=== PATIENT | male | born 1965 | race Hispanic/Latino ===

== ENCOUNTER → 2018-11-11 | Outpatient (CLI) | payer OTHER ==
[~2018-11-11] MED LIST: DEXT30TA10 PO; TAMS0.4C32 PO
[2018-11-11 15:51] LABS: BASOPHILS % (AUTO) 0.9 % (0.0-5.0); EOSINOPHILS % (AUTO) 3.4 % (0.0-8.0); HEMATOCRIT 42.5 % (42-54); MEAN CORPUSCULAR HEMOGLOBIN 31.8 pg (27.0-33.0); MEAN CORPUSCULAR HGB CONC 33.7 g/dL (32.0-36.0); MEAN CORPUSCULAR VOLUME 94.4 fL (79-99); MONOCYTES % (AUTO) 7.4 % (3.0-13.0); NEUTROPHILS % (AUTO) 57.3 % (40.0-77.0); NUCLEATED RED BLOOD CELLS 0.1 % (0.0-0.19); PLATELET COUNT (AUTO) 172 K/uL (130-400); RED CELL DISTRIBUTION WIDTH 12.8 % (11.0-15.5); WHITE BLOOD COUNT (AUTO) 7.3 K/uL (4.8-10.8)
[2018-11-11 16:38] LABS: ALBUMIN 3.1 g/dL (3.5-5.0); BILIRUBIN,TOTAL 0.2 mg/dL (0.2-1.0); CREATININE 1.3 mg/dL (0.5-1.5); POTASSIUM 3.7 mmol/L (3.5-5.1); THYROID STIMULATING HORMONE 1.1 uIU/mL (0.36-3.74); TOTAL PROTEIN, SERUM 5.6 g/dL (6.0-8.3)
== END | disposition home or self-care (01) ==
LOC: LAB 15:13
PROVIDERS: ATTEND Internal Medicine Gastroenterology
DX: R10.13 Epigastric pain (principal); R11.2 Nausea with vomiting, unspecified; R19.4 Change in bowel habit
CPT/HCPCS: 36415; 80053; 82150; 83690; 84443; 85025

== ENCOUNTER → 2018-12-02 | Outpatient (CLI) | payer OTHER | END | disposition home or self-care (01) | LOC: LAB 16:29 | PROVIDERS: ATTEND Internal Medicine Gastroenterology | DX: R19.4 Change in bowel habit (principal) | CPT/HCPCS: 87507 ==

== ENCOUNTER 2020-04-25 11:15 | Inpatient (IN) | payer OTHER ==
[~2020-04-25] VITALS: Ht 157.5 cm; Wt 86.2 kg
[~2020-04-25 11:15] MED LIST changes: -DEXT30TA10 PO
[2020-04-26 09:48] VITALS: BP 141/82
[2020-04-26] MEDS ORDERED: OMEP-420 PO (10:21)
[2020-04-26] MEDS ORDERED: HYDR-4068 PO (10:21)
[2020-04-26] MEDS ORDERED: DULO30CA52 PO (10:21)
[2020-04-26] MEDS ORDERED: ERGO500093 PO (10:21)
[2020-04-26] MEDS ORDERED: TOPI50TA24 PO (10:21)
[2020-04-26] MEDS ORDERED: GABA600T10 PO (10:21)
[2020-04-29] VITALS (27 sets, daily range): BP systolic 102–148; BP diastolic 62–93
[2020-04-29] MEDS ORDERED: VANCOMYCIN 1G 1.5 GM in 0.9% NACL 250ML 250 ML IV SCH (06:00)
[2020-04-29] MEDS ORDERED: CEFAZOLIN SODIUM 1 GM VIAL ONE (06:41)
[2020-04-29] MEDS ORDERED: LACTATED RINGERS 1000ML 1,000 ML IV ONE (06:42)
[2020-04-29] MEDS ORDERED: CLINDAMYCIN IVPB 900MG/50ML 50 ML IV ONE (07:16)
[2020-04-29] MEDS ORDERED: CLINDAMYCIN 900MG/6ML INJ ONE (08:02)
[2020-04-29] MEDS ORDERED: TRANEXAMIC ACID 1000MG/10ML ONE ×2 (08:10→11:57)
[2020-04-29] MEDS ORDERED: METOCLOPRAMIDE 10 MG/2 ML VIAL ONE (08:36)
[2020-04-29] MEDS ORDERED: CELECOXIB 200 MG CAP ONE (08:37)
[2020-04-29] MEDS ORDERED: KETOROLAC 15MG/ML VIAL (15MG/ML) ONE (08:37)
[2020-04-29] MEDS ORDERED: ACETAMINOPHEN 500 MG TABLET ONE (08:37)
[2020-04-29] MEDS ORDERED: ROPIVACAINE 0.5% 5MG/ML 30ML IJ ONE (08:43)
[2020-04-29] MEDS ORDERED: MIDAZOLAM HCL 1 MG/ML 2ML VIAL ONE (08:51)
[2020-04-29] MEDS ORDERED: FENTANYL CITRATE PF 50 MCG/1 ML 2ML VIAL ONE (08:51)
[2020-04-29] MEDS ORDERED: LIDOCAINE HCL-MPF 1% 5ML AMP IJ ONE (08:51)
[2020-04-29] MEDS ORDERED: PROPOFOL 10 MG/ML 20ML VIAL IV ONE ×2 (08:51→10:44)
[2020-04-29] MEDS ORDERED: ROCURONIUM 10MG/1ML SYR 10 MG/ML ML ONE ×2 (08:51→10:46)
[2020-04-29] MEDS ORDERED: EPHEDRINE SULFATE 50 MG/ML AMPULE ONE (09:28)
[2020-04-29] MEDS ORDERED: TRAMADOL HCL 50 MG TABLET PO PRN (11:15)
[2020-04-29] MEDS ORDERED: POTASSIUM CHLORIDE 20MEQ/100ML 100 ML IV PRN (11:15)
[2020-04-29] MEDS ORDERED: LIDOCAINE HCL-MPF 1% 2ML VIAL IV PRN (11:15)
[2020-04-29] MEDS ORDERED: DiphenhydrAMINE HCL 50 MG/ML VIAL IVP PRN (11:15)
[2020-04-29] MEDS ORDERED: OXYCODONE HCL 5 MG TAB PO PRN (11:15)
[2020-04-29] MEDS ORDERED: POTASSIUM CHLORIDE 10% ELIXIR 20 MEQ/15 ML UDCUP PO PRN (11:15)
[2020-04-29] MEDS ORDERED: ONDANSETRON 4MG INJ IVP PRN (11:15)
[2020-04-29] MEDS ORDERED: FERROUS FUMARATE 324 MG TABLET PO PRN (11:15)
[2020-04-29] MEDS ORDERED: KCL 20 MEQ ERTAB PO PRN (11:15)
[2020-04-29] MEDS: ACETAMINOPHEN 500 MG TABLET PO SCH ×2 (11:15→20:51)
[2020-04-29] MEDS: 0.9%NACL 1000ML 1,000 ML IV SCH ×2 (11:15→21:43)
[2020-04-29] MEDS ORDERED: TEMAZEPAM 15 MG CAPSULE PO PRN (11:15)
[2020-04-29] MEDS ORDERED: MEPERIDINE-PF 25 MG/ML SYG ONE ×2 (12:11→12:39)
[2020-04-29] MEDS ORDERED: KETOROLAC 30MG VIAL (30MG/ML) ONE (12:43)
[2020-04-29] MEDS ORDERED: MORPHINE 4 MG SYG ONE (12:48)
[2020-04-29] MEDS: OXYCODONE HCL 5 MG TAB PO PRN ×3 (13:29→20:52)
[2020-04-29] MEDS: KETOROLAC 15MG/ML VIAL (15MG/ML) IV PRN (14:37)
[2020-04-29] MEDS: CLINDAMYCIN IVPB 900MG/50ML 50 ML IVPB SCH (18:04)
[2020-04-29] MEDS: FAMOTIDINE 20MG TAB PO SCH (20:51)
[2020-04-29] MEDS: CELECOXIB 200 MG CAP PO SCH (20:51)
[2020-04-29] MEDS ORDERED: PREGABALIN 25 MG CAP PO SCH (21:00)
[2020-04-29] MEDS: GABAPENTIN 300 MG CAPSULE PO SCH (22:14)
[2020-04-29] MEDS: ASPIRIN 81MG CHEW TAB PO SCH (22:14)
[2020-04-30] MEDS: CLINDAMYCIN IVPB 900MG/50ML 50 ML IVPB SCH (01:03)
[2020-04-30] MEDS: OXYCODONE HCL 5 MG TAB PO PRN ×5 (02:10→18:34)
[2020-04-30] MEDS: ACETAMINOPHEN 500 MG TABLET PO SCH ×3 (02:49→18:35)
[2020-04-30 03:39] VITALS: BP 130/70
[2020-04-30 05:21] LABS: HEMATOCRIT 36.2 % (42-54); MEAN CORPUSCULAR HEMOGLOBIN 30.9 pg (27.0-33.0); MEAN CORPUSCULAR HGB CONC 32.3 g/dL (32.0-36.0); MEAN CORPUSCULAR VOLUME 95.5 fL (79-99); RED BLOOD CELL COUNT(AUTO) 3.79 MIL/uL (4.50-6.20); RED CELL DISTRIBUTION WIDTH 12.3 % (11.0-15.5); WHITE BLOOD COUNT (AUTO) 7.9 K/uL (4.8-10.8)
[2020-04-30 05:29] LABS: CREATININE 0.9 mg/dL (0.5-1.5)
[2020-04-30] MEDS: KETOROLAC 15MG/ML VIAL (15MG/ML) IV PRN ×3 (06:09→21:48)
[2020-04-30] MEDS: 0.9%NACL 1000ML 1,000 ML IV SCH (06:10)
[2020-04-30] MEDS: CALCIUM CARB 500MG PO PRN (06:47)
[2020-04-30] MEDS: TAMSULOSIN HCL 0.4 MG CAP.ER.24H PO SCH (08:47)
[2020-04-30] MEDS: CELECOXIB 200 MG CAP PO SCH ×2 (08:47→21:40)
[2020-04-30] MEDS: FAMOTIDINE 20MG TAB PO SCH ×2 (08:47→21:41)
[2020-04-30] MEDS: POLYETHYLENE GLYCOL 3350 17 GM POWD.PACK PO SCH (08:48)
[2020-04-30] MEDS: DULOXETINE HCL 30 MG CAP PO SCH (08:48)
[2020-04-30] MEDS: ASPIRIN 81MG CHEW TAB PO SCH ×2 (08:48→21:40)
[2020-04-30] MEDS: GABAPENTIN 300 MG CAPSULE PO SCH ×3 (08:48→21:41)
[2020-04-30] MEDS: TOPIRAMATE 25 MG TABLET PO SCH (08:48)
[2020-04-30] MEDS: PANTOPRAZOLE 40 MG TAB DR PO SCH (08:49)
[2020-04-30 09:09] VITALS: BP 128/69
[2020-04-30 11:46] VITALS: BP 132/79
[2020-04-30 16:41] VITALS: BP 115/57
[2020-04-30 19:59] VITALS: BP 138/73
[2020-04-30 23:29] VITALS: BP 136/73
[2020-05-01 03:44] VITALS: BP 127/71
[2020-05-01] MEDS: KETOROLAC 15MG/ML VIAL (15MG/ML) IV PRN (03:54)
[2020-05-01] MEDS: ACETAMINOPHEN 500 MG TABLET PO SCH ×2 (03:54→12:50)
[2020-05-01 08:00] VITALS: BP 114/66
[2020-05-01] MEDS: GABAPENTIN 300 MG CAPSULE PO SCH (08:39)
[2020-05-01] MEDS: CELECOXIB 200 MG CAP PO SCH (08:40)
[2020-05-01] MEDS: DULOXETINE HCL 30 MG CAP PO SCH (08:40)
[2020-05-01] MEDS: OXYCODONE HCL 5 MG TAB PO PRN ×2 (08:40→12:51)
[2020-05-01] MEDS: FAMOTIDINE 20MG TAB PO SCH (08:40)
[2020-05-01] MEDS: PANTOPRAZOLE 40 MG TAB DR PO SCH (08:40)
[2020-05-01] MEDS: POLYETHYLENE GLYCOL 3350 17 GM POWD.PACK PO SCH (08:41)
[2020-05-01] MEDS: ASPIRIN 81MG CHEW TAB PO SCH (08:41)
[2020-05-01] MEDS: TAMSULOSIN HCL 0.4 MG CAP.ER.24H PO SCH (09:00)
[2020-05-01] MEDS: CALCIUM CARB 500MG PO PRN (09:09)
[2020-05-01] MEDS: TOPIRAMATE 25 MG TABLET PO SCH (10:32)
[2020-05-01 12:54] VITALS: BP 125/75
[2020-05-01] MEDS ORDERED: HYDR-4068 PO (13:35)
[2020-05-01] MEDS ORDERED: ASPI-1005 PO (13:35)
[2020-05-02] MEDS ORDERED: BISACODYL 10 MG SUPP.RECT RC PRN (11:15)
== END 2020-05-01 16:11 | disposition home health service (06) | DRG 470 ==
LOC: DAHIP 04-29 06:11 → EDSTATUS 04-29 11:15 → 3AH 04-29 12:17
PROVIDERS: ADMIT Orthopaedic Surgery; ATTEND Orthopaedic Surgery
PROC: 0SRC0J9 Replacement of Right Knee Joint with Synthetic Substitute, Cemented, Open Approach (ICD-10-PCS; principal; 2020-04-29 08:50)
DX: M17.2 Bilateral post-traumatic osteoarthritis of knee (principal); F43.10 Post-traumatic stress disorder, unspecified; G89.4 Chronic pain syndrome; F51.04 Psychophysiologic insomnia; G47.33 Obstructive sleep apnea (adult) (pediatric); K21.9 Gastro-esophageal reflux disease without esophagitis; M48.061 Spinal stenosis, lumbar region without neurogenic claudication; E66.9 Obesity, unspecified; M19.031 Primary osteoarthritis, right wrist; M23.8X1 Other internal derangements of right knee; M22.41 Chondromalacia patellae, right knee; M54.16 Radiculopathy, lumbar region; E78.2 Mixed hyperlipidemia; N52.9 Male erectile dysfunction, unspecified; N40.0 Benign prostatic hyperplasia without lower urinary tract symptoms; F43.22 Adjustment disorder with anxiety; Z20.822 Contact with and (suspected) exposure to COVID-19; Z88.0 Allergy status to penicillin; Z68.34 Body mass index [BMI] 34.0-34.9, adult; Z79.899 Other long term (current) drug therapy; Z98.1 Arthrodesis status; D64.9 Anemia, unspecified
CPT/HCPCS: 36415; 80048; 85027; 87641; 88305; 88311; 97039; G0378; J0690; J1885; J2175; J2250; J2270; J2405; J2704; J2765; J2795; J3010; J3370; J3490; J7050; J7120; U0003